=== PATIENT | male | born 1990 | race Caucasian/White ===

== ENCOUNTER 2016-07-22 11:35 | Emergency (ER) | payer MEDICAID ==
[2016-07-22 11:35] VITALS: BMI 31.0
[2016-07-22] MEDS ORDERED: Bacitracin 500 Units/gm Oint Foilpak UD TOP ONE (11:53)
[2016-07-22] MEDS ORDERED: Lidocaine 1% Inj (20ml) INFIL STA (11:53)
[2016-07-22 11:59] VITALS: TEMP 98.1; O2SAT 97
--- NOTE | 2016-07-22 12:48 | C.PDOC ---
History Of Present Illness The patient, a 26 y/o male, presents to the ED for evaluation of a laceration to his forehead and right eyebrow after he sustained a fall last night. Patient states he was walking outside when he accidentally tripped and fell onto the pavement, leading to his current injuries. Patient denies loss of consciousness , alcohol use, vision change, neck pain, dizziness, nausea or any other injuries. Patient states he is UTD with Tetanus immunization. - HPI Time Seen by Provider: 07/22/16 11:53 Chief Complaint (Nursing): Trauma History Per: Patient History/Exam Limitations: no limitations Onset/Duration Of Symptoms: Hrs Additional History Per: Patient - Fall Fall:Prior To Injury: Tripped Past Medical History Reviewed: Historical Data, Nursing Documentation, Vital Signs Vital Signs: Last Vital Signs Temp 98.1 F 07/22/16 11:44 Pulse 85 07/22/16 13:14 Resp 18 07/22/16 13:14 BP 120/69 07/22/16 13:14 Pulse Ox 97 07/22/16 13:42 - Medical History PMH: Anxiety, Asthma, Depression, HTN, Hypercholesterolemia Surgical History: No Surg Hx - [facility] Procedures TETANUS TOXOID ADMINIST (11/02/12) Family History: States: Unknown Family Hx - Social History Hx Tobacco Use: Yes Hx Alcohol Use: No Hx Substance Use: No - Immunization History Hx Tetanus Toxoid Vaccination: No Hx Influenza Vaccination: No Hx Pneumococcal Vaccination: No Review Of Systems Except As Marked, All Systems Reviewed And Found Negative. Skin: Positive for: Other (laceration ) Physical Exam - Physical Exam Appears: Non-toxic, No Acute Distress Skin: Normal Color, Warm, Dry Head: Normacephalic, Abrasion (right eyelid ), Laceration (1cm irregular-shaped laceration to frontal scalp, 1cm irregular, wedge-shaped laceration below right eyebrow ) Eye(s): bilateral: Normal Inspection, PERRL, EOMI Nose: Normal, No Epistaxis, No Deformity, No Tenderness Oral Mucosa: Moist Neck: Supple Chest: Symmetrical, No Deformity Cardiovascular: Rhythm Regular Respiratory: Normal Breath Sounds Extremity: Bilateral: Atraumatic, Normal Color And Temperature, Normal ROM Neurological/Psych: Oriented x3, Normal Speech, Normal Cognition, Other (no focal deficits) Gait: Steady ED Course And Treatment O2 Sat by Pulse Oximetry: 97 (on RA) Pulse Ox Interpretation: Normal - CT Scan/US CT Head Other Rad Studies (CT/US): Interpreted By Me, Read By Radiologist, Radiology Report Reviewed CT/US Interpretation: Accession No. : [id number]. Patient Name / ID : JACQUES LONDONO / [id number]. Exam Date : 07/22/2016 12:12:05 ( Approved ). Study Comment : Sex / Age : M / 26Y. Creator : Chase Sage MD. Dictator : Chase Sage MD. Welder/Installer : System Support Technician : Chase Sage MD. Approver2 : Report Date : 07/22/2016 13:06:07. My Comment : . PROCEDURE: CT HEAD WITHOUT CONTRAST. HISTORY: injury s.p fall. COMPARISON: 01/21/2016. TECHNIQUE: Axial computed tomography images were obtained through the head/ brain without intravenous contrast. Radiation dose: Total exam DLP = 911 mGy- cm. This CT exam was performed using one or more of the following dose reduction techniques: Automated exposure control, adjustment of the mA and/or kV according to patient size, and/or use of iterative reconstruction technique. FINDINGS: HEMORRHAGE: No intracranial hemorrhage. BRAIN: No mass effect or edema. No atrophy or chronic microvascular ischemic changes. VENTRICLES: Unremarkable. No hydrocephalus. CALVARIUM: Partially imaged right zygomatic arch deformity. PARANASAL SINUSES: Unremarkable as visualized. No significant inflammatory changes. MASTOID AIR CELLS: Unremarkable as visualized. No inflammatory changes. OTHER FINDINGS: Mild nonspecific fullness in the suprasellar cistern. Clinical correlation. IMPRESSION: No acute intracranial abnormality. Partially imaged right zygomatic arch deformity. If focal neurologic deficit persists, consider MRI. Laceration - Laceration Repair below right eyebrow Wound Length (In cm): 1 Description Of Wound: Irregular Anesthesia: Lidocaine 1% Wound Examination: Irrigated With Saline, No FB With Wound Exploration, No Tendon Injury With Wound Exploration Wound Closure: Suture (two ) Suture Technique And Material Used: Interrupted, Prolene (5-0) Wound Complexity: Simple Medical Decision Making Medical Decision Making: Impression: 26 y/o male with laceration to frontal scalp and below right eyebrow Plan: * CT Head * Tylenol PO * Bacitracin TOP * reassess and disposition Progress Notes: CT Head ordered and reviewed. Patient received Tylenol PO. Bacitractin TOP applied to affected area. 1cm irregular, wedge-shaped laceration below right eyebrow. Local anesthesia achieved with 1% lidocaine without epinephrine. Wound irrigated with NS and explored. No FB seen. Two 5-0 Prolene sutures placed. Pt tolerated well with minimal bleeding. On reassessment, patient is resting comfortably, showing no signs of distress or focal deficits, and is stable for discharge. Patient is instructed on wound care and is advised to follow up with his PMD and/or return to the ED if symptoms worsen. Disposition Counseled Patient/Family Regarding: Studies Performed, Diagnosis, Need For Followup - Disposition Referrals: Clinic,Med Surg [Primary Care Provider] - Disposition: HOME/ ROUTINE Disposition Time: 13:10 Condition: STABLE Additional Instructions: Keep area clean and dry. May wash gently with soap and water, do not use alcohol or iodine solution. Change dressing 1-2 times daily. Return to ER if fever occurs, redness or swelling around wound, pus in the wound. Please follow up with your primary doctor, clinic, or urgent care for suture removal in 10 days. Instructions: Laceration (DC) - POA Present On Arrival: None - Clinical Impression Clinical Impression: Facial laceration, Closed head injury, Accidental fall - PA / ELECTRONICS SYSTEM MECHANIC / Resident Statement MD/DO has reviewed & agrees with the documentation as recorded. - Scribe Statement The provider has reviewed the documentation as recorded by the Scribe (Lilian Barnett) All medical record entries made by the Scribe were at my direction and personally dictated by me. I have reviewed the chart and agree that the record accurately reflects my personal performance of the history, physical exam, medical decision making, and the department course for this patient. I have also personally directed, reviewed, and agree with the discharge instructions and disposition.
--- NOTE | 2016-07-22 13:07 | CT ---
PROCEDURE: CT HEAD WITHOUT CONTRAST. HISTORY: injury s.p fall COMPARISON: 01/21/2016 TECHNIQUE: Axial computed tomography images were obtained through the head/brain without intravenous contrast. Radiation dose: Total exam DLP = 911 mGy-cm. This CT exam was performed using one or more of the following dose reduction techniques: Automated exposure control, adjustment of the mA and/or kV according to patient size, and/or use of iterative reconstruction technique. FINDINGS: HEMORRHAGE: No intracranial hemorrhage. BRAIN: No mass effect or edema. No atrophy or chronic microvascular ischemic changes. VENTRICLES: Unremarkable. No hydrocephalus. CALVARIUM: Partially imaged right zygomatic arch deformity. PARANASAL SINUSES: Unremarkable as visualized. No significant inflammatory changes. MASTOID AIR CELLS: Unremarkable as visualized. No inflammatory changes. OTHER FINDINGS: Mild nonspecific fullness in the suprasellar cistern. Clinical correlation. IMPRESSION: No acute intracranial abnormality. Partially imaged right zygomatic arch deformity If focal neurologic deficit persists, consider MRI.
[2016-07-22 13:14] VITALS: BP 120/69; PULSE 85; RESP 18
== END 2016-07-22 13:15 | disposition home or self-care (01) ==
LOC: SUPCPDRO 11:35 → C.ER 11:35
DX: S01.111A Laceration without foreign body of right eyelid and periocular area, initial encounter (principal); S01.01XA Laceration without foreign body of scalp, initial encounter; W01.0XXA Fall on same level from slipping, tripping and stumbling without subsequent striking against object, initial encounter; Y92.414 Local residential or business street as the place of occurrence of the external cause

== ENCOUNTER 2016-10-05 07:04 | Emergency (ER) | payer MEDICAID ==
[2016-10-05 07:05] VITALS: BMI 31.0
[2016-10-05 07:10] VITALS: O2SAT 99
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
[2016-10-05] MEDS ORDERED: Bacitracin 500 Units/gm Oint Foilpak UD TOP ONE (09:27)
[2016-10-05] MEDS ORDERED: Bacitracin 500 Units/gm Oint Foilpak UD ONE (09:33)
--- NOTE | 2016-10-05 11:19 | CT ---
PROCEDURE: CT scan orbits dated 10/02/2026 HISTORY: Right sided eye trauma, 2 days ago COMPARISON: Comparison made with prior CT scan brain 07/22/[address] scan of the orbits 01/21/2016. . TECHNIQUE: Contiguous helical/transaxial l CT images of the orbits were obtained. Coronal and sagittal reformats were generated. Radiation dose: Total exam DLP = 866.05 mGy-cm. This CT exam was performed using one or more of the following dose reduction techniques: Automated exposure control, adjustment of the mA and/or kV according to patient size, and/or use of iterative reconstruction technique. FINDINGS: The current study reveals an apparent age-indeterminate fracture right orbital floor. There also appears to be some involvement of posterolateral wall right lamina papyracea. Mild inferior bowing of the floor into the superior margin right maxillary antrum with inferior displacement of the right inferior rectus muscle however no evidence of entrapment. Muscle however there is some bowing of the floor inferiorly a copy by downward displacement of intraorbital fat. Small amount of orbital fat has also herniated medially through the defect in the posterolateral aspect right lamina papyracea. Note also made of a very slight inferolateral displacement of the right medial rectus muscle. . The globe is intact and lens appropriately located. There are no retrobulbar hemorrhages or collections. . The remaining extraocular musculature. Mild right premaxillary soft tissue swelling Re- demonstrated old fracture left lamina papyracea. There is displacement of the left lamina papyracea medially of and collapse of several adjacent left-sided ethmoid air cells. Herniation of orbital fat through the defect. This fracture was present on the prior CT scan. . Left globe appears intact. Left lens appropriately located. There are no left-sided retrobulbar hemorrhages or collections Re- demonstrated is a chronic fracture deformity of the right zygomatic arch. The remaining visualized maxillofacial skeletal structures appear intact. . . Minimal mucosal thickening seen within the maxillary antra right greater than left. . No fluid levels seen to suggest acute hemorrhage or sinusitis. Impression: There are age-indeterminate fractures of the floor of the right orbit and posterior margin right lamina papyracea. There is slight inferior displacement of orbital fat and inferior rectus muscle however no evidence of entrapment of the right inferior rectus muscle. . Mild right premaxillary soft tissue swelling Old fracture deformity left lamina papyracea. Old fracture deformity right zygomatic arch. See above discussion for additional details and findings.
[2016-10-05 11:31] VITALS: BP 146/93; PULSE 90; RESP 18; TEMP 98.5
== END 2016-10-05 11:32 | disposition home or self-care (01) ==
LOC: C.ER 07:04
DX: S00.11XA Contusion of right eyelid and periocular area, initial encounter (principal); Y04.2XXA Assault by strike against or bumped into by another person, initial encounter; Y93.89 Activity, other specified; Y92.89 Other specified places as the place of occurrence of the external cause

== ENCOUNTER 2017-01-23 13:46 | Emergency (ER) | payer MEDICAID ==
[2017-01-23 13:46] VITALS: BMI 31.0
[2017-01-23 14:07] VITALS: TEMP 98.4
[2017-01-23] MEDS ORDERED: Sodium Chloride 0.9% 1,000 ML IV ONE (14:36)
--- NOTE | 2017-01-23 14:48 | C.PDOC ---
History Of Present Illness 26 y/o male presents to ED with complaints of abdominal pain for 2 months and rectal bleeding that started today. Patient denies fever, chills, nausea, vomiting or any other complaints at this time. Time Seen by Provider: 01/23/17 14:14 Chief Complaint (Nursing): Abdominal Pain History Per: Patient History/Exam Limitations: no limitations Onset/Duration Of Symptoms: Days Current Symptoms Are (Timing): Still Present Severity: Mild Location Of Pain/Discomfort: Diffuse Radiation Of Pain To:: None Exacerbating Factors: None Alleviating Factors: None Recent travel outside of the [place]: No Past Medical History Reviewed: Historical Data, Nursing Documentation, Vital Signs Vital Signs: Last Vital Signs Temp 98.4 F 01/23/17 14:07 Pulse 74 01/23/17 15:59 Resp 18 01/23/17 15:59 BP 120/70 01/23/17 15:59 Pulse Ox 98 01/23/17 15:59 - Medical History PMH: Anxiety, Asthma, Depression, HTN (NO MEDS), Hypercholesterolemia (NO MEDS) Surgical History: No Surg Hx - [facility] Procedures TETANUS TOXOID ADMINIST (11/02/12) Family History: States: No Known Family Hx - Social History Hx Tobacco Use: Yes Hx Alcohol Use: Yes Hx Substance Use: No - Immunization History Hx Tetanus Toxoid Vaccination: No Hx Influenza Vaccination: No Hx Pneumococcal Vaccination: No Review Of Systems Constitutional: Negative for: Fever, Chills Gastrointestinal: Positive for: Abdominal Pain, Rectal Pain. Negative for: Nausea, Vomiting, Diarrhea Genitourinary: Negative for: Dysuria, Hematuria Musculoskeletal: Negative for: Back Pain Skin: Negative for: Rash Physical Exam - Physical Exam Appears: Non-toxic, No Acute Distress Skin: Normal Color, Warm, Dry Head: Atraumatic, Normacephalic Oral Mucosa: Moist Neck: Normal ROM, Supple Chest: Symmetrical Cardiovascular: Rhythm Regular Respiratory: Normal Breath Sounds, No Rales, No Rhonchi, No Wheezing Gastrointestinal/Abdominal: Soft, No Tenderness, No Guarding, No Rebound Rectal: Normal Exam, No Blood Streaked Stool, No Hemorrhoids, No Tenderness Back: No CVA Tenderness Neurological/Psych: Oriented x3 Gait: Steady ED Course And Treatment - Laboratory Results Result Diagrams: 01/23/17 14:49 01/23/17 14:49 Lab Interpretation: Normal O2 Sat by Pulse Oximetry: 100 (RA) Pulse Ox Interpretation: Normal Progress Note: Treated with IVF NSS. On re-evaluation abdomen soft in no distress. Requesting note for missing court today Reassessment Condition: Unchanged Medical Decision Making Medical Decision Making: Plan: Blood work, UA, IV fluids Disposition Counseled Patient/Family Regarding: Studies Performed, Diagnosis, Need For Followup - Disposition Referrals: [facility] [Outside] [facility] [Outside] Disposition: HOME/ ROUTINE Disposition Time: 15:00 Condition: STABLE Additional Instructions: Return to ED if any increase symptoms Instructions: Abdominal Pain (ED) Forms: [employer] (Lithuanian) - POA Present On Arrival: None - Clinical Impression Clinical Impression: Abdominal pain - PA / SUPERVISOR SECURITIES VAULT / Resident Statement MD/DO has reviewed & agrees with the documentation as recorded. - Scribe Statement The provider has reviewed the documentation as recorded by the Scribabdullahi Schaefer All medical record entries made by the Georgieibabdullahi were at my direction and personally dictated by me. I have reviewed the chart and agree that the record accurately reflects my personal performance of the history, physical exam, medical decision making, and the department course for this patient. I have also personally directed, reviewed, and agree with the discharge instructions and disposition.
[2017-01-23] MEDS ORDERED: Sodium Chloride 0.9% 1,000 ML ONE (14:54)
[2017-01-23 14:55] LABS: BASO # 0.1 K/uL (0.0-0.2); BASO % 0.7 % (0.0-2.0); EOS % 0.4 % (0.0-4.0); HEMATOCRIT 42.3 % (35.0-51.0); LYMPH # 2.9 K/uL (1.0-4.3); MEAN CELL VOLUME 91.4 fL (80.0-94.0); MEAN CORPUSCULAR HEMOGLOBIN 30.7 pg (27.0-31.0); MEAN CORPUSCULAR HGB CONC 33.5 g/dL (33.0-37.0); MEAN PLATELET VOLUME 8.9 fL (7.2-11.7); MONO # 0.4 K/uL (0.0-0.8); MONO % 5.8 % (0.0-10.0); NRBC % 0.1 % (0.0-2.0); RED CELL DISTRIBUTION WIDTH 13.8 % (11.5-14.5); WHITE BLOOD COUNT 7.3 K/uL (4.8-10.8)
[2017-01-23 15:12] LABS: CHLORIDE 103 mmol/L (98-107)
[2017-01-23 15:13] LABS: POTASSIUM 3.7 mmol/L (3.6-5.2); SODIUM 138 mmol/L (132-148)
[2017-01-23 15:15] LABS: AST/SGOT 37 U/L (17-59); BILIRUBIN,TOTAL 0.4 mg/dL (0.2-1.3); CARBON DIOXIDE 22 mmol/L (22-30); GFR AFRICAN-AMERICAN > 60
[2017-01-23 15:16] LABS: ALKALINE PHOSPHATASE 80 U/L (38-126); ALT/SGPT 61 U/L (21-72); BLOOD UREA NITROGEN 11 mg/dL (9-20); CALCIUM 9.3 mg/dl (8.6-10.4); GLUCOSE,RANDOM 77 mg/dL (75-110); TOTAL PROTEIN 8.7 g/dL (6.3-8.3)
[2017-01-23 16:00] VITALS: BP 120/70; PULSE 74; RESP 18
[2017-01-23 16:19] LABS: RBC URINE 1 /hpf (0-3); URINE BILIRUBIN NEGATIVE (NEGATIVE); URINE BLOOD NEGATIVE (NEGATIVE); URINE COLOR Yellow (YELLOW); URINE GLUCOSE (UA) NORMAL (Normal); URINE KETONE NEGATIVE (NEGATIVE); URINE LEUKOCYTE ESTERASE TRACE Leu/uL (Negative); URINE PROTEIN NEGATIVE (NEGATIVE); URINE UROBILINOGEN NORMAL mg/dL (0.2-1.0); WBC URINE 15 /hpf (0-5)
[2017-01-23 17:48] VITALS: O2SAT 100
== END 2017-01-23 16:01 | disposition home or self-care (01) ==
LOC: C.ER 13:46
DX: R10.9 Unspecified abdominal pain (principal)
CPT/HCPCS: 80053; 81001; 85025; 96360; 99284; J7040

== ENCOUNTER 2017-03-06 21:33 | Emergency (ER) | payer MEDICAID ==
[2017-03-06 21:34] VITALS: BMI 31.0
[2017-03-06 21:40] VITALS: RESP 20
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
[2017-03-07 00:55] VITALS: BP 125/81; PULSE 100; TEMP 97.5
[2017-03-07 00:58] VITALS: O2SAT 95
== END 2017-03-07 01:12 | disposition home or self-care (01) ==
LOC: C.ER 21:33
DX: F10.129 Alcohol abuse with intoxication, unspecified (principal); Y90.9 Presence of alcohol in blood, level not specified

== ENCOUNTER 2017-11-03 08:23 | Emergency (ER) | payer MEDICAID ==
[2017-11-03 08:23] VITALS: BMI 31.0
[2017-11-03 08:27] VITALS: O2SAT 98
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
[2017-11-03] MEDS ORDERED: Lidocaine 1% w Epi 1:100,000 Inj INJ ONE (09:51)
[2017-11-03] MEDS ORDERED: Bacitracin 500 Units/gm Oint Foilpak UD TOP ONE (09:51)
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
[2017-11-03] MEDS ORDERED: Lidocaine 2% MPF (5 ml) Inj ONE (10:04)
[2017-11-03] MEDS ORDERED: Bacitracin 500 Units/gm Oint Foilpak UD ONE (10:04)
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
[2017-11-03] MEDS ORDERED: Tdap Vaccine 0.5 ml Vial (10-64 yrs) IM ONE ×2 (10:29→10:34)
[2017-11-03 10:47] VITALS: BP 135/80; PULSE 90; RESP 16; TEMP 98.2
== END 2017-11-03 10:48 | disposition home or self-care (01) ==
LOC: C.ER 08:23
DX: S51.012A Laceration without foreign body of left elbow, initial encounter (principal); S62.635A Displaced fracture of distal phalanx of left ring finger, initial encounter for closed fracture; S00.83XA Contusion of other part of head, initial encounter; Y08.89XA Assault by other specified means, initial encounter

== ENCOUNTER 2018-02-11 03:46 | Emergency (ER) | payer SELFPAY ==
[2018-02-11 03:46] VITALS: BMI 31.0
[2018-02-11 03:59] VITALS: BP 136/82; TEMP 98.1
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
[2018-02-11 06:22] VITALS: PULSE 81; RESP 20
[2018-02-11 07:04] VITALS: O2SAT 97
--- NOTE | 2018-02-11 07:19 | CT ---
Date of service: 02/11/2018 PROCEDURE: CT HEAD WITHOUT CONTRAST. HISTORY: dizziness COMPARISON: None available. TECHNIQUE: Axial computed tomography images were obtained through the head/brain without intravenous contrast. Radiation dose: Total exam DLP = 1135.74 mGy-cm. This CT exam was performed using one or more of the following dose reduction techniques: Automated exposure control, adjustment of the mA and/or kV according to patient size, and/or use of iterative reconstruction technique. FINDINGS: HEMORRHAGE: No intracranial hemorrhage. BRAIN: No mass effect or edema. No atrophy or chronic microvascular ischemic changes. VENTRICLES: Unremarkable. No hydrocephalus. CALVARIUM: Unremarkable. PARANASAL SINUSES: Unremarkable as visualized. No significant inflammatory changes. MASTOID AIR CELLS: Unremarkable as visualized. No inflammatory changes. OTHER FINDINGS: Acute comminuted fracture deformities of the bilateral nasal bones. Bowing fracture deformity of the right zygomatic arch. Chronic deformity of the left medial orbital wall. Soft tissue swelling overlying the right parietal cranium. IMPRESSION: No acute intracranial abnormality. Acute comminuted fracture deformities of the bilateral nasal bones. Bowing fracture deformity of the right zygomatic arch. Chronic deformity of the left medial orbital wall. Soft tissue swelling overlying the right parietal cranium. If symptoms persists, consider correlation with MRI. A preliminary report was generated at 5:52 a.m. on 02/11/[address] Molina Britt from [facility].
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
== END 2018-02-11 06:22 | disposition home or self-care (01) ==
LOC: C.ER 03:46
DX: S02.2XXA Fracture of nasal bones, initial encounter for closed fracture (principal); S00.83XA Contusion of other part of head, initial encounter; Y04.0XXA Assault by unarmed brawl or fight, initial encounter; E78.00 Pure hypercholesterolemia, unspecified; I10 Essential (primary) hypertension; Z72.0 Tobacco use

== ENCOUNTER 2018-05-21 12:14 | Emergency (ER) | payer MEDICAID ==
[2018-05-21 12:33] VITALS: BMI 31.6
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
[2018-05-21 13:06] LABS: BASO # 0.1 K/uL (0.0-0.2); BASO % 0.9 % (0.0-2.0); EOS # 0.1 K/uL (0.0-0.7); EOS % 0.6 % (0.0-4.0); HEMOGLOBIN 13.7 g/dL (12.0-18.0); LYMPH # 2.4 K/uL (1.0-4.3); MEAN CELL VOLUME 93.3 fL (80.0-94.0); MEAN CORPUSCULAR HEMOGLOBIN 32.8 pg (27.0-31.0); MEAN CORPUSCULAR HGB CONC 35.1 g/dL (33.0-37.0); MEAN PLATELET VOLUME 9.3 fL (7.2-11.7); MONO # 0.6 K/uL (0.0-0.8); MONO % 6.2 % (0.0-10.0); NEUT % 66.3 % (50.0-75.0); NRBC % 0.2 % (0.0-2.0); RBC 4.17 Mil/uL (4.40-5.90); RED CELL DISTRIBUTION WIDTH 12.7 % (11.5-14.5)
[2018-05-21 13:21] LABS: ALB/GLOB RATIO 1.4 (1.0-2.1); ALBUMIN 4.4 g/dL (3.5-5.0); ALT/SGPT 33 U/L (21-72); AST/SGOT 34 U/L (17-59); BLOOD UREA NITROGEN 16 mg/dL (9-20); CALCIUM 8.7 mg/dl (8.6-10.4); GFR NON-AFRICAN AMERICAN > 60
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
[2018-05-21 14:37] VITALS: BP 134/81; PULSE 99; RESP 18; TEMP 99.1; O2SAT 98
== END 2018-05-21 14:37 | disposition home or self-care (01) ==
LOC: C.ER 12:14
DX: S02.2XXA Fracture of nasal bones, initial encounter for closed fracture (principal); Y04.0XXA Assault by unarmed brawl or fight, initial encounter; I10 Essential (primary) hypertension; E78.00 Pure hypercholesterolemia, unspecified; Z72.0 Tobacco use